=== PATIENT | female | born 2000 | race Caucasian/White ===

== ENCOUNTER → 2018-06-26 | Outpatient (REF) | payer OTHER ==
[~2018-06-26] MED LIST: MACR100C43 PO; PREN1TAB18 PO; REGL10TA6 PO
== END ==
LOC: M SFHCLERA 15:23
PROVIDERS: ATTEND Nurse Practitioner Family
DX: N92.6 Irregular menstruation, unspecified (principal)

== ENCOUNTER → 2018-06-26 | Outpatient (CLI) | payer OTHER | LOC: M LRY 15:48 | PROVIDERS: ATTEND Nurse Practitioner Family | DX: Z53.29 Procedure and treatment not carried out because of patient's decision for other reasons (principal) ==

== ENCOUNTER 2018-06-30 00:10 | Emergency (ER) | payer OTHER ==
[2018-06-30] MEDS: METOCLOPRAMIDE 10 MG TAB PO (00:37)
[2018-06-30 01:04] LABS: AMORPHOUS SEDIMENT RFX SMALL (NEGATIVE); KETONE, URINE AUTO RFX NEGATIVE (NEGATIVE); LEUKOCYTE ESTERASE UR AUTO RFX NEGATIVE (NEGATIVE); NITRITE, URINE AUTO RFX NEGATIVE (NEGATIVE); RBC, URINE AUTO RFX 0 /HPF (0-3); SPECIFIC GRAVITY UR AUTO RFX 1.023 (1.002-1.035); SQUAM EPITHELIAL CELL UR AURFX 2 /HPF (0-6); WBC, URINE AUTO RFX 0 /HPF (0-3)
[2018-06-30] MEDS: NITROFURANTOIN (MACROBID) 100 MG CAP PO (01:34)
== END 2018-06-30 01:37 | disposition home or self-care (01) ==
LOC: M ED 00:10
DX: O23.40 Unspecified infection of urinary tract in pregnancy, unspecified trimester (principal); O21.0 Mild hyperemesis gravidarum; Z79.899 Other long term (current) drug therapy; Z88.0 Allergy status to penicillin
CPT/HCPCS: 81001

== ENCOUNTER → 2018-07-27 | Outpatient (CLI) | payer OTHER ==
[2018-07-27 19:19] LABS: BASO % 0.6 % (0.0-1.0); EOS # 0.1 10^3/uL (0.0-0.50); HEMATOCRIT 39.7 % (36.0-47.0); HEMOGLOBIN 13.6 g/dl (12.0-15.5); LYMPH # 1.5 10^3/uL (1.5-6.5); LYMPH % 21.3 % (24.0-44.0); MEAN CORPUSCULAR HEMOGLOBIN 29.4 pg (27.0-33.0); MEAN CORPUSCULAR HGB CONC 34.3 g/dl (32.0-36.5); MEAN CORPUSCULAR VOLUME 85.9 fl (80.0-96.0); MONO # 0.5 10^3/uL (0.0-0.8); MONO % 6.4 % (0.0-5.0); NEUTROPHILS % 70.1 % (36.0-66.0); PLATELET COUNT, AUTOMATED 269 10^3/uL (150-450); RED BLOOD COUNT 4.62 10^6/uL (4.00-5.40); WHITE BLOOD COUNT 7.2 10^3/uL (4.0-10.0)
[2018-07-27 22:00] LABS: CHLAMYDIA DNA AMPLIFICATION NEGATIVE (NEGATIVE); GC DNA AMPLIFICATION NEGATIVE (NEGATIVE)
[2018-07-28 11:16] LABS: HEPATITIS C VIRUS ABY INDEX 0.1 INDEX (<0.8); HIV 1&2 SCREEN CENTAUR NEGATIVE (NEGATIVE); RUBELLA IgG QUALITATIVE IMMUNE (IMMUNE)
== END ==
LOC: M SMT 13:38
PROVIDERS: ATTEND Advanced Practice Midwife
DX: Z34.81 Encounter for supervision of other normal pregnancy, first trimester (principal)

== ENCOUNTER → 2018-08-23 | Outpatient (CLI) | payer OTHER | LOC: M SMT 15:15 | PROVIDERS: ATTEND Advanced Practice Midwife | DX: Z31.438 Encounter for other genetic testing of female for procreative management (principal) ==

== ENCOUNTER → 2018-09-29 | Outpatient (CLI) | payer OTHER ==
--- NOTE | 2018-09-29 19:37 | REP ---
Obstetric sonography: History: Supervision of for anatomy. Findings: Scanning demonstrates a viable single intrauterine gestation in a breech lie. motion is observed and heart rate is recorded at 153 beats per minute. A posterofundal grade 0 placenta is seen without evidence of previa or abruption. Amniotic fluid is subjectively normal. Closed cervical length is normal measuring 3.1 cm. No extrauterine abnormalities observed. Umbilical cord is seen draping across the shoulders. Exam quality was inhibited by position and early gestation. Face, profile, four-chamber heart with left ventricular outflow tract view, and spine are less than optimally seen as a result. The following additional anatomic structures are identified and felt to be sonographically unremarkable: cranium, choroid plexus, cavum, cerebellum and posterior fossa, lungs, right ventricular outflow tract view, diaphragm, left-sided stomach, umbilical cord insertion site, three-vessel cord, kidneys and bladder, upper and lower extremities. Biometry chart: BPD 4.0 cm = 18 weeks 0 days HC 15.4 cm = 18 weeks 2 days AC 12.7 cm = 18 weeks 2 days FL 2.8 cm = 18 weeks 4 days HL 2.7 cm = 18 weeks 5 days CD 1.9 cm = 18 weeks 4 days HC/AC ratio normal 1.21. Cephalic index normal 0.70. Estimated weight 238 grams, 0 pounds 8 ounces, 58th percentile for 18 weeks 1 day. Impression: Viable single intrauterine gestation at 18 weeks 2 days by today's composite sonographic criteria. ARTHUR by today's sonography March 01, 2019. anatomic survey is less than complete. Electronically Signed by Dean Gould MD 09/29/2018 10:34 P
== END ==
LOC: M LRY 13:43
PROVIDERS: ATTEND Advanced Practice Midwife
DX: Z34.82 Encounter for supervision of other normal pregnancy, second trimester (principal); Z3A.18 18 weeks gestation of pregnancy

== ENCOUNTER → 2018-10-20 | Outpatient (CLI) | payer OTHER ==
--- NOTE | 2018-10-20 15:59 | REP ---
OB ULTRASOUND: Real-time sonographic evaluation of the gravid uterus is performed. There is a single living intrauterine gestation. Estimated gestational age 21 weeks 1 days, EDC 03/01/2019. Today's measurements indicate appropriate growth. BPD 45 mm = 19 weeks 4 days, 10th percentile HC 177 mm = 20 weeks 1 day, 21st percentile AC 167 mm = 21 weeks 5 days, 64th percentile Femur length 38 mm = 22 weeks 0 days, 73rd percentile HC/AC ratio 1.06 within normal range. Estimated weight 436 grams, 63rd percentile. Cervix is closed and measures 3.1 cm in length. heart rate 151 beats per minute. SEEN/GROSSLY UNREMARKABLE Lateral ventricles Yes Posterior fossa Yes Upper lip Yes Four-chamber heart Yes LVOT Yes RVOT Yes Stomach Yes Cord insertion Yes Three vessel cord Yes Kidneys Yes Bladder Yes Spine No Sacral spine not fully visualized. position: Breech. Placenta: Posterior and grade 0 with no previa or abruption. Amniotic fluid: Within normal limits. Electronically Signed by Pino Alfaro MD 10/20/2018 05:10 P
== END ==
LOC: M RAD 13:40
PROVIDERS: ATTEND Obstetrics & Gynecology
DX: Z34.02 Encounter for supervision of normal first pregnancy, second trimester (principal); Z36.89 Encounter for other specified antenatal screening; Z3A.21 21 weeks gestation of pregnancy

== ENCOUNTER → 2018-11-28 | Outpatient (CLI) | payer OTHER ==
[2018-11-28 18:43] LABS: HEMATOCRIT 36.9 % (36.0-47.0); MEAN CORPUSCULAR HEMOGLOBIN 30.7 pg (27.0-33.0); MEAN CORPUSCULAR HGB CONC 32.5 g/dl (32.0-36.5); MEAN CORPUSCULAR VOLUME 94.4 fl (80.0-96.0); PLATELET COUNT, AUTOMATED 246 10^3/uL (150-450); RED BLOOD COUNT 3.91 10^6/uL (4.00-5.40); WHITE BLOOD COUNT 10.7 10^3/uL (4.0-10.0)
== END ==
LOC: M SMT 13:12
PROVIDERS: ATTEND Advanced Practice Midwife
DX: Z34.02 Encounter for supervision of normal first pregnancy, second trimester (principal); Z3A.00 Weeks of gestation of pregnancy not specified
CPT/HCPCS: 36415; 82950; 85027; 86850; 86900; 86901; J2790

== ENCOUNTER → 2019-01-18 | Outpatient (CLI) | payer OTHER ==
--- NOTE | 2019-01-18 23:48 | REP ---
Clinical: Growth evaluation. Comparison: 10/20/2018 . Findings: Examination demonstrates a single live intrauterine in cephalic presentation. motion is identified by technologist. Placenta is noted anterior and grade one without evidence for placenta previa or abruption. Amniotic fluid volume is normal. Cervix measures 3.2 cm in length and appears closed. No evidence for nuchal cord. Gestational age by LMP 34 weeks 0 days with ARTHUR 03/01/2019 . Gestational age by current measurements 33 weeks 2 days with ARTHUR 03/06/2019 . FHR equals 141 beats per minute. BPD 8.5 cm 34 weeks 0 days HC 3.3 cm 33 weeks 5 day AC 27.9 cm 32 weeks 0 days FL 6.4 cm 33 week 0 days HL 5.8 cm 33 weeks 4 days HC/AC ratio 1.09 Estimated weight 2008 grams ( 21st percentile). Amniotic fluid index: 11.7 cm (8.1 - 24.8) Umbilical cord SD ratio: 2.47 (2.00 - 3.00) Impression: Single live intrauterine in cephalic presentation demonstrating appropriate interval growth. Electronically Signed by Gian Schofield MD 01/18/2019 11:39 P
== END ==
LOC: M RAD 13:51
PROVIDERS: ATTEND Advanced Practice Midwife
DX: Z36.89 Encounter for other specified antenatal screening (principal); Z3A.33 33 weeks gestation of pregnancy

== ENCOUNTER → 2019-02-07 | Outpatient (REF) | payer OTHER | LOC: M LAB REF 17:08 | PROVIDERS: ATTEND Advanced Practice Midwife | DX: Z34.03 Encounter for supervision of normal first pregnancy, third trimester (principal) ==

== ENCOUNTER → 2019-02-08 | Outpatient (CLI) | payer OTHER ==
--- NOTE | 2019-02-08 08:23 | REP ---
Clinical: Growth discrepancy of Comparison: 01/18/2019 . Findings: Examination demonstrates a single live intrauterine in cephalic presentation. motion is identified by technologist. Placenta is noted posterior and grade grade III without evidence for placenta previa or abruption. Amniotic fluid volume is normal. Cervix appears closed. No evidence for nuchal cord. Gestational age by LMP 37 weeks 0 days with ARTHUR 03/01/2019 . Gestational age by current measurements 35 weeks 2-day with ARTHUR is 03/13/2019 . FHR equals 158 beats per minute. BPD 8.8 cm 35 weeks 4 days HC 31.4 cm 35 weeks 1 day AC 30.6 cm 34 weeks 4 days FL 7.0 cm 36 weeks 0 days HL 6.1 cm 35 weeks 3 days HC/AC ratio 1.03 Estimated weight 2600 grams ( 23 percentile). Biophysical profile score: 8 Amniotic fluid index: 11.6 cm (7.5 - 24.4) Umbilical cord SD ratio: 2.63 (1.60 - 2.60 Impression: Single live advanced gestation in cephalic presentation demonstrating appropriate interval growth. Amniotic fluid volume and biophysical profile score are normal. Electronically Signed by Gian Schofield MD 02/08/2019 08:15 A
== END ==
LOC: M RAD 06:35
PROVIDERS: ATTEND Advanced Practice Midwife
DX: O26.843 Uterine size-date discrepancy, third trimester (principal)

== ENCOUNTER → 2019-02-15 | Outpatient (CLI) | payer OTHER | LOC: M SMT 12:04 | PROVIDERS: ATTEND Advanced Practice Midwife | DX: Z36.89 Encounter for other specified antenatal screening (principal) ==

== ENCOUNTER 2019-02-20 16:43 | Inpatient (IN) | payer OTHER ==
[~2019-02-20] VITALS: Ht 165.1 cm; Wt 64.8 kg
[2019-02-20] VITALS (25 sets, daily range): BP systolic 103–143; BP diastolic 53–83
[2019-02-20] MEDS ORDERED: LR 1,000 ML IV SCH (17:46)
[2019-02-20] MEDS ORDERED: OXYTOCIN DRIP 30 UNITS in IV 1 EA IV SCH (18:00)
[2019-02-20 18:39] LABS: HEMATOCRIT 35.5 % (36.0-47.0); HEMOGLOBIN 12.1 g/dl (12.0-15.5); MEAN CORPUSCULAR HEMOGLOBIN 30.2 pg (27.0-33.0); MEAN CORPUSCULAR HGB CONC 34.1 g/dl (32.0-36.5); MEAN CORPUSCULAR VOLUME 88.5 fl (80.0-96.0); PLATELET COUNT, AUTOMATED 247 10^3/uL (150-450); RED BLOOD COUNT 4.01 10^6/uL (4.00-5.40); WHITE BLOOD COUNT 10.6 10^3/uL (4.0-10.0)
--- NOTE | 2019-02-20 20:14 | HPE ---
DATE OF ADMISSION: 02/20/2019 A 18-year-old 1, para 0 female at 38-5/7 weeks gestation by last menstrual period (LMP), consistent with an 8-week ultrasound, estimated date of confinement (EDC) of 03/01/2019, presents with leakage of fluid since noon on the day of admission. She stayed at home and her contractions built up slowly throughout the day. Contractions became stronger. She continued to leak fluid throughout the day. COURSE: The patient initiated care at 9 weeks gestation on 07/27/2018. Her first trimester blood pressure was 112/78, weight 135 pounds. She had no complications. MEDICAL HISTORY: None. ALLERGIES: PENICILLIN. PAST SURGICAL HISTORY: None. SOCIAL HISTORY: Father of the baby is involved. The patient denies cigarettes, alcohol, or drug use. FAMILY HISTORY: Noncontributory. PHYSICAL EXAMINATION: Blood pressure 124/76, weight 142, pulse 84. She is in no apparent distress. Head and neck exam: Normal. Lungs: Clear. Heart: Regular rate and rhythm. Abdomen: Nontender, gravid. heart tones: Category 1. Contractions: Every 5-6 minutes, mild. Sterile vaginal exam: Grossly ruptured, clear fluid, Nitrazine positive. Cervix is 2 cm, 80%, -2, posterior soft vertex. Extremities: Nontender. LABS: Blood type B negative, Rubella immune, RPR nonreactive. GBS negative. ASSESSMENT: A 18-year-old 1 at 38-5/7 weeks gestation, presents with spontaneous rupture of membranes in early labor. PLAN: Plan is to admit the patient on 02/20/2019. May start Pitocin augmentation due to the fact that she has been ruptured for quite a few hours now.
[2019-02-20] MEDS ORDERED: FENTANYL 2MCG/ML ROPIVACAINE 0.2% IN 0.9% NACL 100ML IVBAG As Ordered ONE (20:48)
[2019-02-20] MEDS ORDERED: EPIDURAL COMMENT XX SCH (22:15)
[2019-02-20] MEDS ORDERED: ePHEDrine SULFATE 25 MG/5 ML(5MG/ML) SYRINGE IV PRN (22:15)
[2019-02-20] MEDS ORDERED: FENTANYL/ROPIVACAINE/NACL BAG 100 ML EPIDURAL SCH (22:15)
[2019-02-20] MEDS ORDERED: ONDANSETRON 4MG/2ML VIAL (J2405) IV PRN (22:15)
[2019-02-20] MEDS ORDERED: NALOXONE INJ 0.4 MG/1 ML VIAL (J2310) IV PRN (22:15)
[2019-02-20] MEDS ORDERED: REFRIGERATOR IV KEYS XX PRN (22:15)
[2019-02-20] MEDS ORDERED: diphenhydrAMINE INJ 50MG/ML VIAL (J1200) IV PRN (22:15)
[2019-02-20] MEDS ORDERED: EPIDURAL/PCA KEYS XX PRN (22:15)
[2019-02-21] VITALS (12 sets, daily range): BP systolic 96–142; BP diastolic 51–79
[2019-02-21] MEDS ORDERED: ACETAMINOPHEN 500 MG TAB PO PRN (02:00)
[2019-02-21] MEDS ORDERED: OXYTOCIN DRIP 30 UNITS in IV 1 EA IV ONE (02:00)
[2019-02-21] MEDS ORDERED: IBUPROFEN 600 MG TAB PO PRN (02:00)
[2019-02-21] MEDS ORDERED: ONDANSETRON 4MG/2ML VIAL (J2405) IV PRN (02:00)
[2019-02-21] MEDS ORDERED: METHYLERGONOVINE MALEATE 0.2 MG TAB PO PRN (02:00)
[2019-02-21] MEDS ORDERED: RHOGAM 300 MCG (1500 IU) INJ (J2790) IM SCH (02:00)
[2019-02-21] MEDS ORDERED: IBUPROFEN 800 MG TAB PO PRN (02:00)
[2019-02-21] MEDS ORDERED: DOCUSATE SODIUM 100 MG CAP PO PRN (02:00)
[2019-02-21] MEDS ORDERED: DIBUCAINE 1% OINTMENT 30GM TOP PRN (02:00)
[2019-02-21] MEDS ORDERED: MEASLES,MUMPS,RUBELLA VACCINE INJ (MMR-II) (90707) SC SCH (02:00)
[2019-02-21] MEDS ORDERED: ACETAMINOPHEN TAB 650MG DOSE (2X325MG) PO PRN (02:00)
[2019-02-21] MEDS: PRENATAL VITAMINS CHEWABLE TABLET PO SCH (07:30)
[2019-02-21] MEDS ORDERED: SLF 3 ML SYR IV PRN (07:30)
[2019-02-21] MEDS: SLF 3 ML SYR IV SCH ×2 (14:00→22:00)
--- NOTE | 2019-02-21 19:48 | DN ---
DATE: 02/21/2019 PREDELIVERY DIAGNOSIS: 38 and 5/7 weeks gestation, ruptured membranes, labor. POSTDELIVERY DIAGNOSES: Delivered. PROCEDURE: Spontaneous vaginal delivery. [facility] CONSULTANT: Dr. Flavio Dixon ANESTHESIA: Epidural. ESTIMATED BLOOD LOSS: 300 mL. FINDINGS: A 6-pound, 8-ounce female infant, scores 8 and 9. DELIVERY SUMMARY: After a 30-minute second stage, the patient had spontaneous delivery of a 6-pound, 8-ounce female , scores 8 and 9, under epidural anesthesia. There was no nuchal cord. The shoulders delivered with ease. The infant was handed to the mother and cried spontaneously. The cord was doubly clamped and cut. The placenta delivered shortly thereafter and appeared to be intact. The patient received IV pitocin immediately after delivery of the placenta. There were no vaginal lacerations present. Sponge counts were correct.
[2019-02-22 06:00] VITALS: BP 112/63
[2019-02-22] MEDS: PRENATAL VITAMINS CHEWABLE TABLET PO SCH (10:36)
== END 2019-02-22 14:10 | disposition home or self-care (01) | DRG 807 ==
LOC: M LDO 16:43 → M LDI 17:38 → M OBS 02-21 03:30
PROVIDERS: ADMIT Specialist; ATTEND Specialist
PROC: 10E0XZZ Delivery of Products of Conception, External Approach (ICD-10-PCS; principal; 2019-02-21)
DX: O80 Encounter for full-term uncomplicated delivery (principal); Z37.0 Single live birth; Z3A.38 38 weeks gestation of pregnancy